=== PATIENT | male | born 1965 | race Caucasian/White ===

== ENCOUNTER 2016-12-18 22:10 | Emergency (ER) | payer OTHER | END 2016-12-18 22:55 | disposition home or self-care (01) | LOC: ER 22:10 | DX: K12.1 Other forms of stomatitis (principal); K21.9 Gastro-esophageal reflux disease without esophagitis; F17.210 Nicotine dependence, cigarettes, uncomplicated; Z79.899 Other long term (current) drug therapy; Z88.5 Allergy status to narcotic agent; Z88.8 Allergy status to other drugs, medicaments and biological substances ==